=== PATIENT | male | born 1995 | race Hispanic/Latino ===

== ENCOUNTER 2021-07-04 13:23 | Emergency (ER) | payer SELFPAY ==
--- NOTE | 2021-07-04 15:00 | RAD REPORT ---
EXAM DESCRIPTION: RAD - Chest Pa And Lat (2 Views) - 07/04/2021 2:53 pm CLINICAL HISTORY: CHEST PAIN COMPARISON: March 2017 TECHNIQUE: Frontal and lateral views of the chest were obtained. FINDINGS: The lungs are clear. Heart size is normal and central vasculature is within normal limit s. No pleural effusion or pneumothorax seen. No acute bony finding noted. No aortic abnormality. IMPRESSION: No acute cardiopulmonary process. No significant change from comparison study.
[2021-07-04 18:21] LABS: Absolute Lymphocytes (CBC) 2.6 K/uL (0.7-4.9); Hematocrit 51.2 % (39.6-49.0); Lymphocytes % 22.5 % (15.3-44.8); MPV 8.1 fL (7.6-11.3); RBC Red Blood Cell Count 5.89 M/uL (4.33-5.43)
[2021-07-04 18:40] LABS: BUN Blood Urea Nitrogen 14 mg/dL (7-18); Bicarbonate 30 mmol/L (21-32); Glucose Level 99 mg/dL (74-106); Potassium 4.5 mmol/L (3.5-5.1); Sodium Level 137 mmol/L (136-145); Troponin (Emerg Dept Use Only) < 0.02 ng/mL (0.0-0.045)
--- NOTE | 2021-07-04 18:49 | ER ---
Nurse's Notes [facility] Name: Vivek Capellan Age: 26 yrs Sex: Male : 1995 Arrival Date: 07/04/2021 Time: 13:33 Bed Waiting Private MD: Diagnosis: Chest pain, unspecified Presentation: 07/04 14:31 Chief complaint: Patient states: chest heaviness, tingling in arms x3 days and jh5 dizziness. Coronavirus screen: Vaccine status: Patient reports being unvaccinated. Client denies travel out of the [place] in the last 14 days. Ebola Screen: Patient negative for fever greater than or equal to 101.5 degrees Fahrenheit, and additional compatible Ebola Virus Disease symptoms Patient denies exposure to infectious person. Patient denies travel to an Ebola-affected area in the 21 days before illness onset. Initial Sepsis Screen: Does the patient meet any 2 criteria? No. Patient's initial sepsis screen is negative. Does the patient have a suspected source of infection? No. Patient's initial sepsis screen is negative. Risk Assessment: Do you want to hurt yourself or someone else? Patient reports no desire to harm self or others. Onset of symptoms was July 01, 2021. 14:31 Method Of Arrival: Ambulatory [facility] 14:31 Acuity: HARRY 3 [facility] Triage Assessment: 14:35 General: Appears in no apparent distress. slender, well groomed, well developed, well [facility] nourished, Behavior is calm, cooperative, appropriate for age. Pain: Complains of pain in chest. Cardiovascular: No deficits noted. Historical: - Allergies: 14:35 No Known Allergies; [facility] - Home Meds: 14:35 None [Active]; [facility] - PMHx: 14:35 None; [facility] - Immunization history:: Adult Immunizations up to date. - Social history:: Smoking status: Patient reports the use of cigarette tobacco products, smokes one pack cigarettes per day. Vital Signs: 14:31 BP 165 / 104; Pulse 89; Resp 16; Temp 98.5; Pulse Ox 100% ; Weight 81.65 kg; Height 5 [facility] ft. 9 in. (175.26 cm); 14:31 Body Mass Index 26.58 (81.65 kg, 175.26 cm) jh5 ED Course: 13:33 Patient arrived in ED. am2 14:35 Triage completed. jh5 14:35 Arm band placed on left wrist. [facility] 14:52 Ailyn Enriquez FNP-C is PSYCHIATRICP. kb 14:52 Jose L Warren MD is Attending Physician. kb 14:52 Chest Pa And Lat (2 Views) XRAY In Process Unspecified. EDMS 18:14 Initial lab(s) drawn, by me, sent to lab. tm3 Administered Medications: No medications were administered Outcome: 18:49 Discharge ordered by . kb 19:08 Patient left the ED. kb Signatures: Dispatcher [employer] EDMS Ailyn Enriquez FNP-C FNP-Garfield Campos tm3 [facility] am2 Tiana Swift, RN RN 5
--- NOTE | 2021-07-04 18:49 | EDPHYS ---
Physician Documentation [facility] Name: Vivek Capellan Age: 26 yrs Sex: Male : 1995 Arrival Date: 07/04/2021 Time: 13:33 Bed Waiting Private MD: ED Physician Jose L Warren HPI: 07/04 22:06 This 26 yrs old Male presents to ER via Ambulatory with complaints of Chest kb Pain, tingling sensation to arms. 22:06 The patient or guardian reports chest pain that is located primarily in the anterior chest wall. The pain does not radiate. Associated signs and symptoms: Pertinent positives: dizziness, tingling to bilateral arms. The chest pain is described as a heaviness. Duration: The patient or guardian reports a single episode. Modifying factors: The symptoms are alleviated by nothing. the symptoms are aggravated by nothing. Severity of pain: At its worst the pain was mild in the emergency department the pain is unchanged. The patient has not experienced similar symptoms in the past. The patient has not recently seen a physician. Pt reports heaviness to chest for 3 days with intermittent tingling down bilateral upper extremities and dizziness. States he has been under a lot of stress lately. . Historical: - Allergies: 14:35 No Known Allergies; [facility] - Home Meds: 14:35 None [Active]; [facility] - PMHx: 14:35 None; [facility] - Immunization history:: Adult Immunizations up to date. - Social history:: Smoking status: Patient reports the use of cigarette tobacco products, smokes one pack cigarettes per day. ROS: 22:06 Constitutional: Negative for fever, chills, and weight loss. kb 22:06 Cardiovascular: Positive for chest pain, Negative for edema, orthopnea, palpitations, paroxysmal nocturnal dyspnea. 22:06 Neuro: Positive for dizziness, tingling. 22:06 All other systems are negative. Exam: 22:06 Constitutional: This is a well developed, well nourished patient who is awake, alert, kb and in no acute distress. Head/Face: Normocephalic, atraumatic. Eyes: Pupils equal round and reactive to light, extra-ocular motions intact. Lids and lashes normal. Conjunctiva and sclera are non-icteric and not injected. Cornea within normal limits. Periorbital areas with no swelling, redness, or edema. ENT: Moist Mucous membranes Cardiovascular: Regular rate and rhythm with a normal S1 and S2. No gallops, murmurs, or rubs. No pulse deficits. Respiratory: Respirations even and unlabored. No increased work of breathing. Talking in full sentences Skin: Warm, dry with normal turgor. Normal color. MS/ Extremity: Pulses equal, no cyanosis. Neurovascular intact. Full, normal range of motion. Neuro: Awake and alert, GCS 15, oriented to person, place, time, and situation. Moves all extremities. Normal gait. Psych: Awake, alert, with orientation to person, place and time. Behavior, mood, and affect are within normal limits. Vital Signs: 14:31 BP 165 / 104; Pulse 89; Resp 16; Temp 98.5; Pulse Ox 100% ; Weight 81.65 kg; Height 5 [facility] ft. 9 in. (175.26 cm); 14:31 Body Mass Index 26.58 (81.65 kg, 175.26 cm) [facility] MDM: 14:52 Patient medically screened. kb 22:05 Data reviewed: vital signs, nurses notes. Data interpreted: Pulse oximetry: on room air kb is 100 %. Interpretation: normal. Counseling: I had a detailed discussion with the patient and/or guardian regarding: the historical points, exam findings, and any diagnostic results supporting the discharge/admit diagnosis, lab results, radiology results, the need for outpatient follow up, a family practitioner, to return to the emergency department if symptoms worsen or persist or if there are any questions or concerns that arise at home. 07/04 17:38 Order name: CBC with Diff; Complete Time: 19:27 kb 07/04 17:38 Order name: Basic Metabolic Panel; Complete Time: 18:47 kb 07/04 14:37 Order name: Chest Pa And Lat (2 Views) XRAY; Complete Time: 15:06 [facility] 07/04 14:37 Order name: EKG - Nurse/Tech; Complete Time: 14:37 [facility] 07/04 17:38 Order name: Troponin (emerg Dept Use Only); Complete Time: 18:47 kb 07/04 19:07 Order name: CBC Smear Scan; Complete Time: 19:27 EDMS Administered Medications: No medications were administered Disposition: 07/05 07:25 Co-signature as Attending Physician, Jose L Warren MD I agree with the assessment and kdr plan of care. Disposition Summary: 07/04/21 18:49 Discharge Ordered Location: Home kb Condition: Stable kb Diagnosis - Chest pain, unspecified kb Followup: kb - With: Emergency Department - When: As needed - Reason: Worsening of condition Followup: kb - With: Private Physician - When: 2 - 3 days - Reason: Recheck today's complaints, Continuance of care, Re-evaluation by your physician Discharge Instructions: - Discharge Summary Sheet kb - Nonspecific Chest Pain, Adult, [id number] kb Forms: - Medication Reconciliation Form kb - Thank You Letter kb - Antibiotic Education kb - Prescription Opioid Use kb Signatures: Dispatcher [employer] EDMS Ailyn Enriquez, VICE PRESIDENT BUSINESS DEVELOPMENT-C VICE PRESIDENT BUSINESS DEVELOPMENT-Jose L Yost MD MD [facility] Tiana Swift RN RN jh5
[2021-07-04 19:07] LABS: Blood Morphology Comment NOT SEEN (NOT SEEN); Platelet Estimate ADEQ; White Blood Cell Scan OK (OK)
[2021-07-04 19:37] VITALS: BP 165/104; TEMP 98.5; O2SAT 100
== END 2021-07-04 19:08 | disposition home or self-care (01) ==
LOC: ER 13:23
DX: R07.9 Chest pain, unspecified (principal); F17.210 Nicotine dependence, cigarettes, uncomplicated
CPT/HCPCS: 36415; 71046; 80048; 84484; 85025; 93005; 99283